=== PATIENT | male | born 1940 | race Caucasian/White ===

== ENCOUNTER 2020-12-26 08:52 | Emergency (ER) | payer MEDICARE, OTHER, SELFPAY ==
[2020-12-26 09:00] VITALS: PULSE 101; O2SAT 92
[2020-12-26 09:10] VITALS: BP 138/83; PULSE 101; RESP 18; TEMP 36.8; O2SAT 98
--- NOTE | 2020-12-26 09:18 | DI.RAD.S_ITS ---
PROCEDURE: XR CHEST 1V INDICATIONS: s/p covid booster yesterday, heavy breathing, n, fever overn TECHNIQUE: One view of the chest was acquired. COMPARISON: None. FINDINGS: Surgical changes and devices: Status post median sternotomy and findings consistent with prior CABG. Overlying EKG wires. Lungs and pleura: Lungs are clear. No pleural effusions or pneumothorax. Mediastinum: Mediastinal contours appear normal. Heart size is normal. Vascular calcifications are noted within the aorta. Bones and chest wall: No suspicious bony lesions. Overlying soft tissues appear unremarkable. IMPRESSION: No evidence of an acute cardiopulmonary abnormality. Postsurgical changes of CABG. Dictated by: Parminder Ortiz D.O. on 12/26/2020 at 8:50 Approved by: Parminder Ortiz D.O. on 12/26/2020 at 8:51
--- NOTE | 2020-12-26 09:19 | ED_ITS ---
HPI - Chest Pain General Chief Complaint: Shortness of Breath/Dyspnea Stated Complaint: reaction to booster shot Time Seen by Provider: 12/26/20 09:09 Source: patient and family (spouse at bedside.) Mode of arrival: Ambulatory Limitations: no limitations History of Present Illness HPI narrative: This is an 80-year-old male comes emergency department with complaint of possible reaction to his booster shot. He had his 3rd shot yesterday. He states the 1st 2 he had no changes. He states he felt fine during the day and then around 2:00 a.m. woke up and felt like he was breathing heavy. States that he had a fever of 100 F, he felt a little nauseated. He denies any chest pain or pressure. He denies feeling short of breath. He denies having any painful breathing. He just feels like he was breathing ?heavy ?. Patient states he felt a little nauseated. He has not had any additional symptoms since then. He states it lasted till about 8:00 a.m. this morning and then resolved on its own. Patient states they did have a pulse oximeter but that he was getting readings rating from 95 to 80s jumping up and down. Patient denies any diarrhea constipation. No urinary symptoms. No swelling in his extremities. He does have a cardiac history with bypass in 2015 he has not had any cardiac stents since then. He never had a heart attack. He has had 2 hernia repairs that failed and then a mesh placed with success. He denies any other surgeries. He takes medication including aspirin for blood pressure and cholesterol. He is allergic to cats but no medications. His primary care is Dr. Palma. Review of Systems Review of Systems ROS Unobtainable: All systems reviewed & are unremarkable except as noted in HPI and below Patient History Social History Smoking Status: Never smoker Exam Narrative Exam Narrative: GENERAL: Alert and oriented x three, male in mild distress. HEENT: Head normocephalic, atraumatic, EOMI, pupils reactive, face symmetric, moist mucous membranes NECK: Supple, full range of motion CARDIOVASCULAR: Regular rate and rhythm without murmurs, rubs or gallops. No swelling bilateral lower extremities. No JVD. RESPIRATORY: Breath sounds equal bilaterally, no wheezes rales or rhonchi. ABDOMEN: Soft, nontender. Normoactive bowel sounds all 4 quadrants. No guarding or rebound, rigidity, no mass : No CVA tenderness EXTREMITIES: Normal range of motion, no edema. Neurovascularly intact NEUROLOGICAL: Cranial nerves II through XII grossly intact. Moving all extremities SKIN: Warm, dry, no petechiae, no rashes or lesions. Initial Vital Signs Initial Vital Signs: Vital Signs Pulse Rate 101 H 12/26/20 09:00 Pulse Oximetry 92 12/26/20 09:00 Course Orders Ordered: ED Orders 12/26/20 09:08 Complete Blood Count AUTO DIFF Stat Comprehensive Metabolic Panel Stat Lipase Stat NT-proBNP (BNP-Adult 18+) Stat Troponin & CK Cardiac Panel Stat 12/26/20 09:18 XR chest 1V Stat EKG-12 Lead Stat Vital Signs Vital signs: Vital Signs - 8 hr 12/26/20 09:00 12/26/20 09:10 12/26/20 09:30 Temperature 98.3 F Pulse Rate 101 H 101 H 87 Respiratory Rate 18 20 Blood Pressure 138/83 118/82 Pulse Oximetry 92 98 96 MDM - Chest Pain Lab Data Result diagrams: 12/26/20 09:08 12/26/20 09:08 Labs: Lab Results 12/26/20 12/26/20 12/26/20 Range/Units 09:00 09:08 09:08 WBC 7.5 (4.5-11.0) X10^3/uL RBC 4.88 (4.5-5.9) X10^6/uL Hgb 15.5 (13.5-17.5) g/dL Hct 46.9 (41-53) % MCV 96.1 (80-100) fL MCH 31.8 (26-34) PG MCHC 33.1 (30-36) % RDW 13.8 (11.6-14.8) % Plt Count 178 (150-400) X10^3/uL Neut % (Auto) 78.5 H (50-75) % Lymph % (Auto) 10.7 L (25-40) % Buchanan % (Auto) 9.2 (3-14) % Eos % (Auto) 1.0 L (2-4) % Baso % (Auto) 0.6 (0-2) % Neut # (Auto) 5900 (6194-1315) /uL Lymph # (Auto) 800 L (0731-4258) /uL Buchanan # (Auto) 700 (0-900) /uL Eos # (Auto) 100 (0-450) /uL Baso # (Auto) 0 (0-100) /uL Sodium 138 (137-145) mmol/L Potassium 3.9 (3.4-5.1) mmol/L Chloride 100 (98-107) mmol/L Carbon Dioxide 29 (22-32) mmol/L BUN 13 (9-20) mg/dL Creatinine 0.93 (0.66-1.25) mg/dL Estimated GFR > 60.0 (>60) mL/min BUN/Creatinine Ratio 14.0 (6-22) Glucose 130 H (80-110) mg/dL Calcium 9.1 (8.4-10.2) mg/dL Total Bilirubin 1.2 (0.2-1.3) mg/dL AST 30 (17-59) IU/L ALT 27 (<50) IU/L Alkaline Phosphatase 48 (38-126) U/L Total Creatine Kinase 70 (55-170) U/L CK-MB (CK-2) TNP CK-MB (CK-2) Rel Index TNP Troponin I < 0.012 (0.01-0.034) ng/mL NT-Pro-B Natriuret Pep 224 (<450) pg/mL Total Protein 7.2 (6.3-8.2) g/dL Albumin 4.5 (3.5-5.0) g/dL Globulin 2.7 (1.7-4.1) g/dL Albumin/Globulin Ratio 1.7 (1.0-2.8) Lipase 36 (23-300) U/L SARS-CoV-2 (PCR) Negative (Negative) Imaging Data Chest x-ray: Radiologist's Impression: Close Chest X-Ray (Signed) Parminder Ortiz - 12/26/20 Launch?[address] [address] XRay Report Signed Patient: Robert Fisher MR#: [id number] : 1940 Acct:[id number] Age/Sex: 80 / M Date of Service: 12/26/20 Loc: ED Accession Number: [id number] ?? Procedure: XR chest 1V Ordering Provider: Babita Gonzales D.O. PROCEDURE:? XR CHEST 1V ? INDICATIONS:? s/p covid booster yesterday, heavy breathing, n, fever overn ? TECHNIQUE:? One view of the chest was acquired.? ? COMPARISON:? None. ? FINDINGS:? ? Surgical changes and devices:? Status post median sternotomy and findings consistent with prior CABG.? Overlying EKG wires. ? Lungs and pleura:? Lungs are clear.? No pleural effusions or pneumothorax.? ? Mediastinum:? Mediastinal contours appear normal.? Heart size is normal.? Vascular calcifications are noted within the aorta. ? Bones and chest wall:? No suspicious bony lesions.? Overlying soft tissues appear unremarkable.? ? IMPRESSION:? ? No evidence of an acute cardiopulmonary abnormality.? Postsurgical changes of CABG. ? ? Dictated by: Parminder Ortiz D.O. on 12/26/2020 at 8:50 ? ? Approved by: Parminder Ortiz D.O. on 12/26/2020 at 8:51?? ECG Data Attestation: I personally reviewed and interpreted this ECG as follows: Prior ECG tracings: not available for review Interpretation: Sinus rhythm first-degree AV block. Rate 89, [place] 262, QRS 96 and QTC of 438. Patient has Q-wave in 2 3 AVF. RSR in V1 V2 with left anterior fascicular block and incomplete right bundle branch. Patient does not have any acute ischemic changes. He does not have priors for comparison. [facility] Narrative Medical decision making narrative: 80-year-old male who likely had a reaction to his COVID booster. He woke up with a mild fever of 100 F, some heavy breathing but no chest pain or shortness of breath. , chest x-ray, EKG and labs do not show any acute changes. Patient otherwise has had his symptoms resolved. He was 7 hours out from his initial onset of symptoms with negative troponin and EKG and feel appropriate to discharge home. Discharge Plan Departure Patient Disposition: Home Clinical Impression: Vaccine reaction Activity Restrictions/Additional Instructions: Your labs, EKG and chest x-ray do not show any major changes today. Suspect your symptoms are response to vaccination and a normal response likely. If you have fevers you may take Tylenol up to a 1000 mg every 8 hours. Your COVID swab has not resulted as you have elected to return home. Please call in next couple hours to follow up the result. If positive I should call you but if it is very busy this can sometimes be delayed. You can call [phone] for the ER. Please return if you have new chest pain, shortness of breath, lightheadedness, swelling in your extremitiesor passing out, persistent vomiting or if you are having any other new or concerning symptoms
[2020-12-26 09:30] VITALS: BP 118/82; PULSE 87; PULSE 94; RESP 20; O2SAT 96
[2020-12-26 09:31] LABS: Add Manual Diff / Slide Review NO; Basophils Absolute Auto 0 /uL (0-100); Basophils Percent Auto 0.6 % (0-2); Eosinophils Absolute Auto 100 /uL (0-450); Hematocrit 46.9 % (41-53); Hemoglobin 15.5 g/dL (13.5-17.5); Lymphocytes Absolute Auto 800 /uL (1100-4500); Lymphocytes Percent Auto 10.7 % (25-40); Mean Corpuscular HGB Conc 33.1 % (30-36); Mean Corpuscular Hemoglobin 31.8 PG (26-34); Mean Corpuscular Volume 96.1 fL (80-100); Monocytes Absolute Auto 700 /uL (0-900); Monocytes Percent Auto 9.2 % (3-14); Neutrophils Absolute Auto 5900 /uL (1500-7000); Neutrophils Percent Auto 78.5 % (50-75); Platelet Count 178 X10^3/uL (150-400); Red Blood Cell Count 4.88 X10^6/uL (4.5-5.9); Red Cell Distribution Width 13.8 % (11.6-14.8); White Blood Cell Count 7.5 X10^3/uL (4.5-11.0)
[2020-12-26 09:57] LABS: Alanine Aminotransferase 27 IU/L (<50); Albumin 4.5 g/dL (3.5-5.0); Albumin Globulin Ratio 1.7 (1.0-2.8); Alkaline Phosphatase 48 U/L (38-126); Aspartate Aminotransferase 30 IU/L (17-59); Bilirubin Total 1.2 mg/dL (0.2-1.3); Blood Urea Nitrogen 13 mg/dL (9-20); Calcium 9.1 mg/dL (8.4-10.2); Carbon Dioxide 29 mmol/L (22-32); Chloride 100 mmol/L (98-107); Creatine Kinase 70 U/L (55-170); Estimated Glomerular Filt Rate > 60.0 mL/min (>60); Globulin 2.7 g/dL (1.7-4.1); Glucose 130 mg/dL (80-110); HEMOLYSIS < 15 (0-50); Lipase 36 U/L (23-300); Potassium 3.9 mmol/L (3.4-5.1); Sodium 138 mmol/L (137-145); Total Protein 7.2 g/dL (6.3-8.2)
[2020-12-26 10:00] VITALS: BP 119/72; PULSE 89; RESP 18; O2SAT 94
[2020-12-26 10:09] LABS: NT-proBNP (BNP-Adult 18+) 224 pg/mL (<450); Troponin I < 0.012 ng/mL (0.01-0.034)
[2020-12-26 10:30] VITALS: BP 122/72; PULSE 85; RESP 18; O2SAT 94
[2020-12-26 11:18] LABS: COVID19 -Nasal RAPID Negative (Negative)
--- NOTE | 2020-12-26 11:19 | PC.NURSE ---
called pt to give negative covid swab results
== END 2020-12-26 11:00 | disposition home or self-care (01) ==
PROVIDERS: Emergency Provider Emergency Medicine
DX: R50.9 Fever, unspecified (principal); R06.02 Shortness of breath; R11.0 Nausea; Z20.822 Contact with and (suspected) exposure to COVID-19; T50.B95A Adverse effect of other viral vaccines, initial encounter
CPT/HCPCS: 36415; 71045; 80053; 82550; 83690; 83880; 84484; 85025; 87635; 93005; 99284; C9803

== ENCOUNTER 2021-07-03 08:43 | Emergency (ER) | payer MEDICARE, OTHER, SELFPAY ==
--- NOTE | 2021-07-03 09:07 | DI.RAD.S_ITS ---
PROCEDURE: XR CHEST 1V INDICATIONS: fever, cough TECHNIQUE: One view of the chest was acquired. COMPARISON: [facility], CR, XR CHEST 1V, 12/26/2020, 9:36. FINDINGS: Surgical changes and devices: Sternotomy and CABG. Lungs and pleura: Lungs are clear. No pleural effusions or pneumothorax. Mediastinum: Mediastinal contours appear normal. Heart size is normal. Bones and chest wall: No suspicious bony lesions. Overlying soft tissues appear unremarkable. IMPRESSION: No acute cardiopulmonary disease. Dictated by: Ann Horne M.D. on 07/03/2021 at 8:29 Approved by: Ann Horne M.D. on 07/03/2021 at 8:30
[2021-07-03 09:11] VITALS: BP 125/83; PULSE 79; RESP 20; TEMP 36.3; O2SAT 98; BMI 27.4
--- NOTE | 2021-07-03 09:23 | ED.URI ---
HPI - URI/Sore Throat General Chief Complaint: Upper Respiratory Symptoms Stated Complaint: Light fever, headache, sore throat, fatigue Time Seen by Provider: 07/03/21 08:53 Source: patient Mode of arrival: Family Vehicle History of Present Illness HPI Narrative: 80-year-old male nonsmoker with history of coronary artery disease status post CABG presents with a day or 2 of various upper respiratory symptoms and concern for COVID. He has had a fever as high as 100.4 but denies any shaking chills. He has had a very mild headache, some nasal congestion and a dry scratchy throat. He has had a dry and hacking cough without any sputum production or blood. He denies GI symptoms such as nausea, vomiting or diarrhea. He denies any dysuria, frequency or urgency. He denies any exposure to persons known or suspected of having COVID. He states he largely feels quite well, but wants to be careful. He is vaccinated against COVID and Flu Related Data Previous Rx's Medication Instructions Recorded nirmatrelvir 150 mg x 2-ritonavir See Rx Instructions .ROUTE 07/03/21 100 mg tablet (EUA) (Paxlovid .COMPLEX #30 tab (EUA)) Allergies Allergy/AdvReac Type Severity Reaction Status Date / Time No Known Drug Allergies Allergy Verified 07/03/21 09:11 Review of Systems Review of Systems Narrative: GENERAL: See HPI HEENT: See HPI RESPIRATORY: See HPI CARDIOVASCULAR: Denies chest pain, palpitations, orthopnea, edema, GASTROINTESTINAL: Denies nausea, vomiting, abdominal pain, diarrhea, constipation, melena. : Denies dysuria, frequency, incontinence, hematuria, urinary retention. MUSCULOSKELETAL: denies weakness, joint pain, or bony pain SKIN: Denies rash, skin lesions, or other NEUROLOGIC: Denies weakness, headache, numbness, change in speech, confusion, seizures, incoordination. PSYCHIATRIC: No concerning psychosocial issues. 12 point review of systems is negative except for those stated above Patient History Social History Smoking Status: Never smoker Smoking Status: Never smoker alcohol intake frequency: a few times a week Substance Use Type: does not use Exam Narrative Exam Narrative: GENERAL: [80] year old patient appears stated age. Well-developed patient, in mild distress. HEAD: Atraumatic. Normocephalic. EYES: Pupils equal round and reactive. Extraocular motions intact. No scleral icterus. No injection or drainage. ENT: Nose without bleeding, purulent drainage. Throat without erythema, tonsillar hypertrophy or exudate. Airway patent. NECK: Trachea midline. Non tender. No meningeal signs CARDIOVASCULAR: Regular rate and rhythm without murmurs, gallops, or rubs. RESPIRATORY: Clear to auscultation. Breath sounds equal bilaterally. No wheezes, rales, or rhonchi. GASTROINTESTINAL: Abdomen soft, non-tender, nondistended. EXTREMITIES: No edema or joint tenderness. BACK: Nontender without deformity or crepitance. No flank tenderness. NEURO: AOx3. SKIN: No rash or erythema of visible areas Initial Vital Signs Initial Vital Signs: Vital Signs Temperature 97.4 F L 07/03/21 09:11 Pulse Rate 79 07/03/21 09:11 Respiratory Rate 20 07/03/21 09:11 Blood Pressure 125/83 07/03/21 09:11 Pulse Oximetry 98 07/03/21 09:11 Course Orders Ordered: ED Orders 07/03/21 09:07 XR chest 1V Stat Covid-19 + FLU A/B by PCR Stat 07/03/21 10:30 Creatinine & eGFR Stat Vital Signs Vital signs: Vital Signs - 8 hr 07/03/21 09:11 Temperature 97.4 F L Pulse Rate 79 Respiratory Rate 20 Blood Pressure 125/83 Pulse Oximetry 98 MDM - URI/Sore Throat Lab Data Result diagrams: 07/03/21 10:30 Labs: Lab Results 07/03/21 07/03/21 Range/Units 09:07 10:30 Creatinine 0.94 (0.66-1.25) mg/dL Estimated GFR > 60 (>60) mL/min SARS-CoV-2 (PCR) Positive H (Negative) Influenza A (RT-PCR) Flu a negative (NEGATIVE) Influenza B (RT-PCR) Flu b negative (NEGATIVE) Discharge Plan Departure Patient Disposition: Home Clinical Impression: COVID-19 Instructions: DI for COVID-19 (Suspected or Confirmed ) Activity Restrictions/Additional Instructions: A prescription for Paxlovid has been sent to [facility] pharmacy. This medication can have a serious interaction with your cholesterol rosuvastatin so it is recommended that you do not take this medication for 1 week while on Paxlovid *You have been diagnosed with [ COVID-19] *What to do: * per recommendations from the CDC and the [facility] Department of Health * stay home except to get medical care. Restrict activities outside your home, except for getting medical care. Do not go to work, school, or public areas. Avoid using public transportation, ride sharing, or taxis. * separate yourself from other people in your home. * call ahead before visiting your doctor * Wear a facemask * Cover your coughs and sneezes * Clean your hands often * Avoid sharing household items * Clean all high-touch services every day * Monitor your symptoms and seek prompt medical attention if your illness is worsening, particularly with difficulty in breathing. You may discontinue your isolation when: 1. You have been fever-free for at least 24 hours without the use of fever reducing medication, AND 2. Your symptoms are getting better, AND 3. At least 5 days have passed since symptoms first appeared 4. If you have fever, continue to stay home until fever resolves Individuals with laboratory confirmed COVID-19 who have not had any symptoms may discontinue home isolation when at least 5 days have passed since the date of their first COVID-19 diagnostic test and have had no subsequent illness You should notifiy any friends and family that have been in close contact *If up to date on COVID Vaccines, then they do not need to quarantine unless symptoms develop. Get tested on day 5 (or sooner if symptoms develop). Take precautions and watch for symptoms until day 10 *If NOT up to date on COVID Vaccines, then CDC recommends quarantine for at least 5 full days. Wear a well fitted mask at home if you must be around others. If they develop symptoms they should get tested. If they remain asymptomatic they should get tested on day 5. They should take precautions and monitor for symptoms until day 10. Prescriptions: New Paxlovid (EUA) 150 mg x 2- 100 mg tablet See Rx Instructions .ROUTE .COMPLEX Qty: 30 0RF Rx Instructions: take TWO 150 mg tablets of nirmatrelvir with ONE 100 mg tablet of ritonavir twice daily for 5 days COVID+ Day 2. Creatinine 0.94/eGFR> 60
[2021-07-03 09:55] LABS: Influenza A - CEPHEID Flu A NEGATIVE (NEGATIVE); Influenza B - CEPHEID Flu B NEGATIVE (NEGATIVE)
[2021-07-03 09:57] LABS: COVID-19 CEPHEID PCR (VTM/NP) POSITIVE (Negative)
[2021-07-03 11:05] LABS: Estimated Glomerular Filt Rate > 60 mL/min (>60)
[2021-07-03 11:42] VITALS: BP 122/73; PULSE 56; RESP 18; O2SAT 96
== END 2021-07-03 11:43 | disposition home or self-care (01) ==
PROVIDERS: Emergency Provider Emergency Medicine
DX: U07.1 COVID-19 (principal)
CPT/HCPCS: 71045; 82565; 87635; 99282; 99283; C9803

== ENCOUNTER → 2022-04-18 11:29 | Outpatient (CLI) | payer MEDICARE, OTHER, SELFPAY ==
[2022-04-18 12:34] LABS: Hematocrit 43.3 % (41-53); Hemoglobin 14.9 g/dL (13.5-17.5); Mean Corpuscular HGB Conc 34.4 % (30-36); Mean Corpuscular Hemoglobin 32.4 PG (26-34); Mean Corpuscular Volume 94.1 fL (80-100); Platelet Count 182 X10^3/uL (150-400); Red Cell Distribution Width 13.6 % (11.6-14.8); White Blood Cell Count 6.3 X10^3/uL (4.5-11.0)
[2022-04-18 13:23] LABS: Alanine Aminotransferase 28 IU/L (<50); Albumin Globulin Ratio 1.6 (1.0-2.8); Alkaline Phosphatase 44 U/L (38-126); Aspartate Aminotransferase 31 IU/L (17-59); BUN Creatinine Ratio 14.9 (6-22); Bilirubin Total 1.3 mg/dL (0.2-1.3); Blood Urea Nitrogen 13 mg/dL (9-20); Calcium 9.1 mg/dL (8.4-10.2); Carbon Dioxide 27 mmol/L (22-32); Chloride 103 mmol/L (98-107); Cholesterol 137 mg/dL (140-199); Estimated Glomerular Filt Rate > 60 mL/min (>60); Globulin 2.5 g/dL (1.7-4.1); Glucose 106 mg/dL (80-110); HDL Cholesterol 59 mg/dL (40-60); HEMOLYSIS < 15 (0-50); LDL Cholesterol Calculated 63 mg/dL (<100); Potassium 4.3 mmol/L (3.4-5.1); Sodium 138 mmol/L (137-145); Total Protein 6.5 g/dL (6.3-8.2); Triglycerides 76 mg/dL (35-150)
[2022-04-18 13:44] LABS: Prostate Specific Antigen 3.73 ng/mL (0.10-4.00); TSH w/ Reflex to FT4 1.69 uIU/mL (0.47-4.68)
== END ==
PROVIDERS: PCP Internal Medicine; Referring Provider Internal Medicine; Visit Provider Internal Medicine
DX: E78.2 Mixed hyperlipidemia (principal); Z85.038 Personal history of other malignant neoplasm of large intestine; N40.1 Benign prostatic hyperplasia with lower urinary tract symptoms; I10 Essential (primary) hypertension; I25.10 Atherosclerotic heart disease of native coronary artery without angina pectoris; N13.8 Other obstructive and reflux uropathy
CPT/HCPCS: 36415; 80053; 80061; 82378; 84153; 84443; 85027

== ENCOUNTER → 2022-07-25 16:44 | Outpatient (CLI) | payer MEDICARE, OTHER, SELFPAY ==
[2022-07-25 18:10] LABS: Influenza A - CEPHEID Flu A NEGATIVE (NEGATIVE); Influenza B - CEPHEID Flu B NEGATIVE (NEGATIVE); Respiratory Syncytial Virus Negative (Negative)
[2022-07-25 18:18] LABS: COVID-19 CEPHEID 4-PLEX PCR Negative (Negative)
== END ==
PROVIDERS: PCP Internal Medicine; Visit Provider Internal Medicine
DX: J06.9 Acute upper respiratory infection, unspecified (principal)
CPT/HCPCS: 0241U

== ENCOUNTER → 2023-05-10 08:32 | Outpatient (CLI) | payer MEDICARE, OTHER, SELFPAY ==
[2023-05-10 09:34] LABS: Alanine Aminotransferase 26 IU/L (<50); Albumin 3.9 g/dL (3.5-5.0); Albumin Globulin Ratio 1.3 (1.0-2.8); Alkaline Phosphatase 47 U/L (38-126); Aspartate Aminotransferase 39 IU/L (17-59); BUN Creatinine Ratio 16.5 (6-22); Bilirubin Total 1.4 mg/dL (0.2-1.3); Blood Urea Nitrogen 13 mg/dL (9-20); Calcium 9.2 mg/dL (8.4-10.2); Carbon Dioxide 30 mmol/L (22-32); Chloride 107 mmol/L (98-107); Cholesterol 132 mg/dL (140-199); Estimated Glomerular Filt Rate > 60 mL/min (>60); Globulin 2.9 g/dL (1.7-4.1); Glucose 110 mg/dL (80-110); HDL Cholesterol 56 mg/dL (40-60); HEMOLYSIS < 15 (0-50); LDL Cholesterol Calculated 56 mg/dL (<100); Potassium 4.5 mmol/L (3.4-5.1); Sodium 141 mmol/L (137-145); Total Protein 6.8 g/dL (6.3-8.2); Triglycerides 99 mg/dL (35-150)
[2023-05-10 09:37] LABS: Hematocrit 45.3 % (41-53); Hemoglobin 15.3 g/dL (13.5-17.5); Mean Corpuscular HGB Conc 33.7 % (30-36); Mean Corpuscular Hemoglobin 31.8 PG (26-34); Mean Corpuscular Volume 94.3 fL (80-100); Platelet Count 197 X10^3/uL (150-400); Red Cell Distribution Width 13.6 % (11.6-14.8); White Blood Cell Count 6.1 X10^3/uL (4.5-11.0)
== END ==
PROVIDERS: PCP Internal Medicine; Referring Provider Internal Medicine; Visit Provider Internal Medicine
DX: E78.2 Mixed hyperlipidemia (principal); I10 Essential (primary) hypertension; I25.10 Atherosclerotic heart disease of native coronary artery without angina pectoris
CPT/HCPCS: 36415; 80053; 80061; 85027

== ENCOUNTER → 2023-08-24 17:06 | Outpatient (CLI) | payer MEDICARE, OTHER, SELFPAY | PROVIDERS: PCP Internal Medicine; Visit Provider Nurse Practitioner Family | DX: S81.802A Unspecified open wound, left lower leg, initial encounter (principal) | CPT/HCPCS: 87070; 87075; 87205 ==

== ENCOUNTER 2023-09-26 07:25 | Emergency (ER) | payer MEDICARE, OTHER, SELFPAY ==
[2023-09-26] VITALS (11 sets, daily range): BP systolic 121–166; BP diastolic 63–80; PULSE 73–77; RESP 20–28; TEMP 37.3; O2SAT 93–98; BMI 28.0
--- NOTE | 2023-09-26 08:02 | EKG_ITS ---
[facility] [address] [place] [address] Test Date: 2023-09-26 Pat Name: Robert Fisher Department: [facility] Room: Gender: Male [employer]: [employer] : 1940 Requested By: Order Number: [id number] Reading MD: Genaro Kaufman Measurements Intervals [place] Rate: 76 P: 39 PA: 232 QRS: -53 QRSD: 94 T: 59 QT: 364 QTc: 409 Interpretive Statements Sinus rhythm with 1st degree AV block Left axis deviation Incomplete right bundle branch block Electronically Signed On 09-26-2023 8:51:46 PDT by Genaro Kaufman
[2023-09-26 08:11] LABS: Add Manual Diff / Slide Review NO; Basophils Absolute Auto 0 /uL (0-100); Basophils Percent Auto 0.7 % (0-2); Eosinophils Absolute Auto 100 /uL (0-450); Eosinophils Percent Auto 0.8 % (2-4); Hematocrit 46.5 % (41-53); Hemoglobin 15.7 g/dL (13.5-17.5); Lymphocytes Absolute Auto 1300 /uL (1100-4500); Lymphocytes Percent Auto 18.3 % (25-40); Mean Corpuscular HGB Conc 33.7 % (30-36); Mean Corpuscular Hemoglobin 32.2 PG (26-34); Mean Corpuscular Volume 95.3 fL (80-100); Monocytes Absolute Auto 800 /uL (0-900); Monocytes Percent Auto 12.1 % (3-14); Neutrophils Absolute Auto 4700 /uL (1500-7000); Neutrophils Percent Auto 68.1 % (50-75); Platelet Count 148 X10^3/uL (150-400); Red Blood Cell Count 4.88 X10^6/uL (4.5-5.9); Red Cell Distribution Width 14.2 % (11.6-14.8); White Blood Cell Count 6.9 X10^3/uL (4.5-11.0)
[2023-09-26 08:19] LABS: Alanine Aminotransferase 159 IU/L (<50); Albumin 4.2 g/dL (3.5-5.0); Albumin Globulin Ratio 1.5 (1.0-2.8); Alkaline Phosphatase 67 U/L (38-126); Aspartate Aminotransferase 275 IU/L (17-59); Blood Urea Nitrogen 13 mg/dL (9-20); Calcium 8.5 mg/dL (8.4-10.2); Carbon Dioxide 28 mmol/L (22-32); Chloride 102 mmol/L (98-107); Estimated Glomerular Filt Rate > 60 mL/min (>60); Globulin 2.8 g/dL (1.7-4.1); Glucose 151 mg/dL (80-110); HEMOLYSIS 21 (0-50); Lipase 537 U/L (23-300); Potassium 3.9 mmol/L (3.4-5.1); Sodium 136 mmol/L (137-145)
--- NOTE | 2023-09-26 08:20 | ED_ITS ---
HPI - Abdominal Pain General Chief Complaint: Abdominal Pain Stated Complaint: Upper stomach pain, weak and dizzy COVID + Time Seen by Provider: 09/26/23 08:07 Source: patient and family Mode of arrival: Ambulatory History of Present Illness HPI narrative: Patient here for non reproducible epigastric pain that does not radiate to chest or back. Patient states is positive for COVID. He tested positive for COVID. He felt fine over the weekend however this past Sunday couple of days ago felt feverish. Was doing well. No cough cold congestion or shortness of breath. However last night he had 2 episodes 1 was 20 minutes episode, and others 5 minute episode of epigastric discomfort nonreproducible achy feeling he can not describe but did not radiate causing him nausea but no vomiting. He was sweating. Never had this before. He had COVID in 2021 but not the symptoms. No urinary complaints no black or bloody stools. No prior history of aortic dissection or aneurysm. Does have history of CABG/coronary disease but denies any chest pain or shortness of breath patient in no distress at this time. No discomfort or nausea at this time. Exam is reassuring at this time Related Data Home Medications Medication Instructions Recorded Confirmed amlodipine 5 mg tablet 5 mg PO DAILY 04/06/22 08/14/23 aspirin 81 mg capsule 81 mg PO DAILY 04/06/22 08/14/23 cholecalciferol (vitamin D3) 25 25 mcg PO DAILY 04/06/22 08/14/23 mcg (1,000 unit) capsule cyanocobalamin (vitamin B-12) 1,000 mcg PO DAILY 04/06/22 08/14/23 1,000 mcg capsule ezetimibe 10 mg tablet 10 mg PO DAILY 04/06/22 08/14/23 rosuvastatin 20 mg tablet 20 mg PO DAILY 04/06/22 08/14/23 Previous Rx's Medication Instructions Recorded mupirocin 2 % topical ointment 1 applic topical TID #22 grams 08/24/23 hydrocodone 5 mg-acetaminophen 325 1 tab PO Q6H PRN pain #20 tabs 09/26/23 mg tablet ondansetron 4 mg disintegrating 4 mg PO Q8H PRN nausea and 09/26/23 tablet vomiting #10 tabs Allergies Allergy/AdvReac Type Severity Reaction Status Date / Time No Known Drug Allergies Allergy Verified 08/24/23 16:30 Review of Systems Review of Systems Narrative: GENERAL: negative chills, fatigue, malaise, fever, positive sweats. HEENT: negative sinus pain, ear pain, sore throat RESPIRATORY: negative dyspnea, cough CARDIOVASCULAR: negative chest pain, palpitations GASTROINTESTINAL: Positive nausea, negative vomiting, positive abdominal pain : negative dysuria, frequency, hematuria MUSCULOSKELETAL: negative muscle or bony pain SKIN: negative rash, skin lesions NEUROLOGIC: negative weakness, numbness ROS Unobtainable: All systems reviewed & are unremarkable except as noted in HPI and below Patient History Medical History Overweight History of colon cancer BPH w urinary obs/LUTS Mixed hyperlipidemia Essential hypertension Chicken pox (~194) Colon polyps Coronary artery disease (~2014) Surgical History Anesthesia History of coronary artery bypass graft (~12/2014) History of hernia repair (~12/2005) History of hernia repair (~12/2003) History of cholecystectomy (~09/2003) Colon tumor (~03/2003) Family History Father History of heart disease Mother Cancer Grandfather Flu Social History details: ([place]), two children, retired financial/contract associate Smoking Status: Never smoker Smoking Status: Never smoker alcohol intake frequency: a few times a week Substance Use Type: does not use Exam Narrative Exam Narrative: GENERAL: in no distress, not toxic not dyspneic HEAD: Normocephalic. EYES: Pupils equal round ENT: Mucous membranes moist. NECK: Trachea midline. CARDIOVASCULAR: Regular rate and rhythm RESPIRATORY: Clear to auscultation. Breath sounds equal bilaterally. No wheezes, rales, or rhonchi. GASTROINTESTINAL: Abdomen soft, non-tender, no epigastric tenderness, bowel sounds are present. No pain out of portion exam no peritoneal signs no CVA tenderness. Strong bilateral carotid pulses and radial pulses. EXTREMITIES: No gross deformities. BACK: No flank tenderness. NEURO: AOx4. SKIN: Warm and dry, not diaphoretic PSYCH: Not anxious, is cooperative Initial Vital Signs Initial Vital Signs: Vital Signs Temperature 99.1 F 09/26/23 07:25 Pulse Rate 75 09/26/23 07:25 Respiratory Rate 20 09/26/23 07:25 Blood Pressure 155/80 H 09/26/23 07:25 Pulse Oximetry 98 09/26/23 07:25 Oxygen Delivery Method Room Air 09/26/23 07:25 Course Orders Ordered: Discontinued Medications Sodium Chloride (Normal Saline 0.9%) 500 mls @ 1,000 mls/hr IV BOLUS ONE Stop: 09/26/23 08:52 Last Infusion: 09/26/23 10:20 Dose: Infused Documented By: Admin: 09/26/23 09:05 Dose: 1,000 mls/hr Documented By: NATASHA Ondansetron HCl (Ondansetron 4 Mg/2 Ml Inj) 4 mg IV NOW PRN PRN Reason: Nausea And Vomiting Ondansetron HCl (Ondansetron 4 Mg Odt) 4 mg PO NOW PRN PRN Reason: Nausea And Vomiting Vital Signs Vital signs: Vital Signs - 8 hr 09/26/23 07:25 09/26/23 07:35 09/26/23 07:37 Temperature 99.1 F Pulse Rate 75 Respiratory Rate 20 Blood Pressure 155/80 H 155/80 H Pulse Oximetry 98 96 Oxygen Delivery Method Room Air Nasal Cannula Oxygen Flow Rate 4 09/26/23 07:37 09/26/23 08:00 09/26/23 08:48 Temperature Pulse Rate 75 77 Respiratory Rate Blood Pressure 166/79 H Pulse Oximetry 97 95 Oxygen Delivery Method Oxygen Flow Rate 09/26/23 08:48 09/26/23 08:55 09/26/23 09:00 Temperature Pulse Rate 74 75 Respiratory Rate 28 H Blood Pressure Pulse Oximetry 98 95 97 Oxygen Delivery Method Nasal Cannula Oxygen Flow Rate 4 09/26/23 09:01 09/26/23 09:01 09/26/23 09:30 Temperature Pulse Rate 75 Respiratory Rate Blood Pressure 129/63 138/69 Pulse Oximetry 95 Oxygen Delivery Method Oxygen Flow Rate 09/26/23 09:30 09/26/23 10:00 09/26/23 10:00 Temperature Pulse Rate 73 75 Respiratory Rate Blood Pressure 121/69 Pulse Oximetry 97 93 Oxygen Delivery Method Oxygen Flow Rate MDM - Abdominal Pain Lab Data 09/26/23 07:43 09/26/23 07:43 Labs: Lab Results 09/26/23 09/26/23 09/26/23 Range/Units 07:43 08:40 09:24 WBC 6.9 (4.5-11.0) X10^3/uL RBC 4.88 (4.5-5.9) X10^6/uL Hgb 15.7 (13.5-17.5) g/dL Hct 46.5 (41-53) % MCV 95.3 (80-100) fL MCH 32.2 (26-34) PG MCHC 33.7 (30-36) % RDW 14.2 (11.6-14.8) % Plt Count 148 L (150-400) X10^3/uL Neut % (Auto) 68.1 (50-75) % Lymph % (Auto) 18.3 L (25-40) % Barber % (Auto) 12.1 (3-14) % Eos % (Auto) 0.8 L (2-4) % Baso % (Auto) 0.7 (0-2) % Neut # (Auto) 4700 (3433-1882) /uL Lymph # (Auto) 1300 (8281-8313) /uL Barber # (Auto) 800 (0-900) /uL Eos # (Auto) 100 (0-450) /uL Baso # (Auto) 0 (0-100) /uL Sodium 136 L (137-145) mmol/L Potassium 3.9 (3.4-5.1) mmol/L Chloride 102 (98-107) mmol/L Carbon Dioxide 28 (22-32) mmol/L BUN 13 (9-20) mg/dL Creatinine 0.93 (0.66-1.25) mg/dL Estimated GFR > 60 (>60) mL/min BUN/Creatinine Ratio 14.0 (6-22) Glucose 151 H (80-110) mg/dL Calcium 8.5 (8.4-10.2) mg/dL Total Bilirubin 1.0 (0.2-1.3) mg/dL AST 275 H (17-59) IU/L ALT 159 H (<50) IU/L Alkaline Phosphatase 67 (38-126) U/L Total Creatine Kinase 101 (55-170) U/L Troponin I < 0.012 (0.01-0.034) ng/mL Total Protein 7.0 (6.3-8.2) g/dL Albumin 4.2 (3.5-5.0) g/dL Globulin 2.8 (1.7-4.1) g/dL Albumin/Globulin Ratio 1.5 (1.0-2.8) Lipase 537 H (23-300) U/L Urine RBC None seen (0-5/HPF) Urine WBC 1-5/hpf (0-5/HPF) Ur Squamous Epith Cells None seen (0-5/HPF) Urine Bacteria None seen (None) Ur Culture Indicated? Specimen cultured Vol Urine Centrifuged 10ml (spun) Ethyl Alcohol < 10 ( - 10) mg/dL Chlamy pneumoniae PCR Not detected (Not Detect) Adenovirus (PCR) Not detected (Not Detect) B.parapertussis DNA PCR Not detected (Not Detecte) Coronavirus OC43 (PCR) Not detected (Not Detect) Coronavirus HKU1 (PCR) Not detected (Not Detect) Coronavirus 229E (PCR) Not detected (Not Detect) SARS-CoV-2 (PCR) Detected H (Not Detecte) Coronavirus NL63 (PCR) Not detected (Not Detect) Human Metapneumovir PCR Not detected (Not Detect) Influenza Type A (PCR) Not detected (Not Detect) Influenza Type B (PCR) Not detected (Not Detect) M. pneumoniae (PCR) Not detected (Not Detect) Parainfluenza 1 (PCR) Not detected (Not Detect) Parainfluenza 2 (PCR) Not detected (Not Detect) Parainfluenza 3 (PCR) Not detected (Not Detect) Parainfluenza 4 (PCR) Not detected (Not Detect) RSV (PCR) Not detected (Not Detect) Entero/Rhino (PCR) Not detected (Not Detect) Point of care testing: Urine Dip Bedside Urine Glucose Negative Bedside Urine Bilirubin - Negative Bedside Urine Ketone - Negative Urine Specific [place] 1.010 Bedside Urine Occult Blood - Negative Bedside Urine pH 6.0 Bedside Urine Protein - Negative Bedside Urine Urobilinogen - Negative Bedside Urine Nitrite - Negative Bedside Urine Leukocytes +/- [address] angio chest abdomen pelvis: Radiologist's Impression: [address] [address] [address] Scan Report Signed Patient: Robert Fisher MR#: [id number] : 1940 Acct:[id number] Age/Sex: 82 / M Date of Service: 09/26/23 Loc: ED Accession Number: [id number] Procedure: CT angio chest abdomen pelvis Ordering Provider: Jeff Cassidy MD PROCEDURE: CT ANGIO CHEST ABDOMEN PELVIS INDICATIONS: Epigastric pain TECHNIQUE: Precontrast 5 mm thick sections acquired from the lung apices to the iliac crests. After the administration of intravenous contrast, 2.5 mm thick sections again acquired from the lung apices to the iliac crests. Maximum intensity projection (MIP) oblique sagittal and coronal reformats were then acquired. For radiation dose reduction, the following was used: automated exposure control. COMPARISON: None. FINDINGS: Image quality: Diagnostic. AORTA: No acute aortic syndrome. Significant atherosclerotic calcifications. Aneurysmal dilatation of the infrarenal abdominal aorta measuring 3.8 x 3.5 centimeters. CHEST: Lower Neck: No enlarged lymph nodes. Thyroid: No thyroid nodules which require sonographic evaluation. Axillae: No enlarged lymph nodes. Chest Wall: Unremarkable. Lungs and Pleura: No pneumothorax or pleural effusions. No consolidation or suspicious nodules. Heart: Heart size is normal. Severe coronary artery calcifications. Postsurgical changes from CABG. No pericardial effusion. Thoracic Vessels: Dilated main pulmonary artery measuring 3.6 centimeters. Mediastinum and Yin: No enlarged lymph nodes. Esophagus: No wall thickening. No hiatal hernia. ABDOMEN: Liver: No solid mass. Gallbladder: Surgically absent. Biliary ducts: No biliary dilation. Pancreas: No ductal dilation. Cystic structure arising from the body of the pancreas measuring 1.3 centimeters. Spleen: Size is within normal limits. Adrenal Glands: No adrenal nodules. Kidneys and Ureters: No hydronephrosis. No solid mass. No complex renal cystic lesion which requires follow up. Stomach and Bowel: Normal colonic caliber, without significant wall thickening. Diverticulosis evidence of acute diverticulitis. Postsurgical changes at the cecum. Peritoneum: No abnormal intraperitoneal fluid. No free air. Ventral Wall: Anterior abdominal wall mesh hernia repair. Small fat containing hernia anterior to the mesh in the epigastric region. Abdominal Nodes: No retroperitoneal or mesenteric adenopathy by size criteria. Vessels: Inferior vena cava is normal in size. PELVIS: Pelvic Organs: Prostate is enlarged. Bladder: Unremarkable. Pelvic Nodes: No enlarged lymph nodes. Miscellaneous: Small bilateral fat containing inguinal hernias are seen. Bones: Degenerative changes of the spine. Median sternotomy wires. IMPRESSION: 1. No acute aortic syndrome. 2. Aneurysmal dilatation of the infrarenal abdominal aorta measuring up to 3.8 centimeters. Recommend follow-up imaging in 2 years to assess stability. 3. Dilated main pulmonary artery, suggestive of pulmonary hypertension. 4. Severe coronary artery calcifications. Postsurgical changes from CABG. 5. 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 Dictated by: Eduardo Raygoza M.D. on 09/26/2023 at 8:51 Approved by: Eduardo Raygoza M.D. on 09/26/2023 at 9:06 [facility] Narrative Medical decision making narrative: Patient here for non reproducible epigastric pain that does not radiate to chest or back. Patient states is positive for COVID. He tested positive for COVID. He felt fine over the weekend however this past Sunday couple of days ago felt feverish. Was doing well. No cough cold congestion or shortness of breath. However last night he had 2 episodes 1 was 20 minutes episode, and others 5 minute episode of epigastric discomfort nonreproducible achy feeling he can not describe but did not radiate causing him nausea but no vomiting. He was sweating. Never had this before. He had COVID in 2021 but not the symptoms. No urinary complaints no black or bloody stools. No prior history of aortic dissection or aneurysm. Does have history of CABG/coronary disease but denies any chest pain or shortness of breath patient in no distress at this time. No discomfort or nausea at this time. Exam is reassuring at this time After history and exam EKG troponin CBC CMP lipase CT angio chest abdomen pelvis normal saline MDM Medical records reviewed: No recent visit versus complaint Differential considered: Includes but not limited to aortic dissection aortic aneurism, pneumonia, mesenteric adenitis acid reflux gastritis pancreatitis bowel obstruction hiatal hernia Lab Test results independently reviewed as above. Pertinent findings: WBC 6.9 hemoglobin 15.7 sodium 136 potassium 3.9 glucose 151 AST 275 ALT 159 troponin less than 0.012 lipase 537 Positive COVID alcohol negative Independently reviewed EKG EKG sinus rhythm rate [address] elevation or depression Imaging studies independently reviewed: CT angiogram chest abdomen pelvis no acute aortic syndrome. There is aneurysmal dilatation infrarenal aorta 3.8 cm recommend to your follow up. 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 Spoke with General surgery Dr. Norris, no further imaging indicated. No admission indicated. Patient will need to follow up with primary care for referral to likely [facility] or outside facility for biopsy which may include gastroenterology services or Interventional Radiology. The services are not done here. Oncology will be to be content after biopsy. 10:[address] Lynch, primary care, who will see patient next week for follow up and get appropriate referrals for pancreatic lesion fainting today. CT results reviewed with him and follow up will be provided for aneurysms findings as well Treatments: Normal saline Re-evaluations: 9:28 a.m. Updated patient and results. Does have abdominal aneurysms but likely not the source of problem today. Likely pancreatitis given CT results of cyst. There are elevated liver enzymes and lipase. Uncertain source of this cyst at this time. Neoplastic is considered. He does not have heavy alcohol abuse. At this time awaiting to hear back from general surgery and oncology. Aneurysmal findings reviewed with patient and but these are not likely source of his discomfort. Follow up needed with primary care. Discussion: Appropriate for discharge home exam is reassuring. COVID finding not likely related to the pancreatic finding. Return precautions reviewed. Not requiring supplemental oxygen. No respiratory complaints. Pain is controlled. Return precautions reviewed with patient and . They do understand much more workup and follow up will be needed next week with primary care that was contacted today. No symptoms at this time at time of discharge. Prescriptions provided. They desire discharge home Diagnosis: COVID/pancreatitis Discharge Plan Departure Patient Disposition: Home Clinical Impression: COVID Pancreatitis Qualifiers: Chronicity: acute Pancreatitis type: unspecified pancreatitis type Acute pancreatitis complication: unspecified Qualified Code(s): K85.90 - Acute pancreatitis without necrosis or infection, unspecified Instructions: DI for Pancreatitis, DI for Abdominal Pain-Adult, DI for COVID-19 (Suspected or Confirmed ) Activity Restrictions/Additional Instructions: Your family doctor has been contacted today for findings of pancreatitis and assist on your pancreas. He will see you next week. Please call the office for appointment time today. You will need further workup through his office and treatment plan. In the meantime no fried fatty greasy foods, oily foods, alcohol. Prescription medication has been provided for pain or nausea. Return if worse if any questions or concerns. You have tested positive for COVID. You must quarantine 5 days from 1st day of symptoms. Prescriptions: New hydrocodone-acetaminophen 5-325 mg tablet 1 tab PO Q6H PRN (Reason: pain) Qty: 20 0RF ondansetron 4 mg tablet,disintegrating 4 mg PO Q8H PRN (Reason: nausea and vomiting) Qty: 10 0RF No Action mupirocin 2 % ointment 1 applic topical TID Qty: 22 0RF rosuvastatin 20 mg tablet 20 mg PO DAILY ezetimibe 10 mg tablet 10 mg PO DAILY amlodipine 5 mg tablet 5 mg PO DAILY aspirin 81 mg capsule 81 mg PO DAILY cholecalciferol (vitamin D3) 25 mcg (1,000 unit) capsule 25 mcg PO DAILY cyanocobalamin (vitamin B-12) 1,000 mcg capsule 1,000 mcg PO DAILY Referrals: Wilbur Lynch MD [Primary Care Provider] - Stand Alone Forms: Patient Portal/API
[2023-09-26 08:36] LABS: Creatine Kinase 101 U/L (55-170)
[2023-09-26 08:50] LABS: Troponin I < 0.012 ng/mL (0.01-0.034)
[2023-09-26 09:01] LABS: Urine Volume 10mL (spun)
[2023-09-26 09:02] LABS: Bacteria Urine None Seen; Culture Indicated Urine Specimen Cultured; RBC Urine None Seen (0-5/HPF); Squamous Epithelial Cell Urine None Seen (0-5/HPF); WBC Urine 1-5/HPF (0-5/HPF)
[2023-09-26] MEDS: SODIUM CHLORIDE 0.9% 500 ML 1000 ML IV (09:05)
[2023-09-26 09:36] LABS: Ethanol (ETOH) < 10 mg/dL
[2023-09-26 10:18] LABS: Adenovirus Not Detected (Not Detect); B. parapertussis Not Detected (Not Detecte); Bordetella pertussis Not Detected (Not Detect); Chlamydophila pneumoniae Not Detected (Not Detect); Coronavirus 229E Not Detected (Not Detect); Coronavirus HKU1 Not Detected (Not Detect); Coronavirus NL 63 Not Detected (Not Detect); Coronavirus OC43 Not Detected (Not Detect); Human Metapneumovirus Not Detected (Not Detect); Human Rhinovirus/Enterovirus Not Detected (Not Detect); Influenza A Not Detected (Not Detect); Influenza B Not Detected (Not Detect); Mycoplasma pneumoniae Not Detected (Not Detect); Parainfluenza Virus 1 Not Detected (Not Detect); Parainfluenza Virus 2 Not Detected (Not Detect); Parainfluenza Virus 3 Not Detected (Not Detect); Parainfluenza Virus 4 Not Detected (Not Detect); Respiratory Syncytial Virus Not Detected (Not Detect)
[2023-09-26 10:19] LABS: SARS- CoV-2 Detected (Not Detecte)
== END 2023-09-26 11:07 | disposition home or self-care (01) ==
PROVIDERS: Emergency Provider Emergency Medicine; PCP Internal Medicine
DX: U07.1 COVID-19 (principal); K85.90 Acute pancreatitis without necrosis or infection, unspecified; R10.13 Epigastric pain
CPT/HCPCS: 36415; 71275; 74174; 80053; 80320; 81003; 81015; 82550; 83690; 84484; 85025; 87086; 87633; 93005; 96360; 99284; 99285; Q9967

== ENCOUNTER → 2023-09-27 18:52 | Outpatient (CLI) | payer MEDICARE, OTHER, SELFPAY ==
--- NOTE | 2023-09-27 18:53 | DI.MRI.S_ITS ---
PROCEDURE: MR ABDOMEN WO/W CON INDICATIONS: pancreatic cyst TECHNIQUE: Coronal HASTE, axial 2D FLASH in- and [id number]; axial breath-hold T2 FSE with fat saturation from the hepatic dome to the iliac crests. Oblique coronal thin-slice and radial thick slab HASTE through the biliary system. Dynamic axial VIBE during administration of contrast. Post-contrast coronal VIBE or 2D FLASH with fat saturation from the hepatic dome to the iliac crests. Optional diffusion weighted imaging and ADC may be performed. COMPARISON: [facility], CT, CT ANGIO CHEST ABDOMEN PELVIS, 09/26/2023, 8:22. FINDINGS: Image quality: Diagnostic Lower chest: Not well evaluated on this MRI Liver: No significant focal abnormality. Gallbladder and biliary system: Gallbladder is not seen. Ectatic biliary system, may be related to postsurgical state Pancreas: Nondilated pancreatic duct. 1.3 centimeter cystic lesion arising from the superior body is confirmed on MRI, without high risk features suggest ductal dilation or nodular enhancement Spleen: Nonenlarged Adrenals: No discrete nodules Kidneys: There are cysts. No solid mass or hydronephrosis Vessels and lymph nodes: Abdominal aortic aneurysm, better assessed on recent CT. Main portal vein is patent. No abdominal pathologic lymph nodes by size criteria Bowel and peritoneum: No pathologic ascites or bowel obstruction There are suture lines. Body wall: Postsurgical changes. Bones: Degenerative changes IMPRESSION: A 1.3 centimeter pancreatic body cystic lesion may represent IPMN. No high risk features such as ductal dilation or nodular enhancement. Given patient age, clinical follow-up in 1-2 years may be obtained at clinical discretion. Other findings as above Dictated by: Raymond Khan M.D. on 09/28/2023 at 10:00 Approved by: Raymond Khan M.D. on 09/28/2023 at 10:05
== END ==
PROVIDERS: PCP Internal Medicine; Referring Provider Internal Medicine; Visit Provider Internal Medicine
DX: K86.2 Cyst of pancreas (principal); N28.1 Cyst of kidney, acquired; I71.40 Abdominal aortic aneurysm, without rupture, unspecified
CPT/HCPCS: 74183; A9579

== ENCOUNTER → 2023-10-03 10:28 | Outpatient (CLI) | payer MEDICARE, OTHER, SELFPAY ==
[2023-10-03 11:30] LABS: Hematocrit 44.8 % (41-53); Hemoglobin 15.4 g/dL (13.5-17.5); Mean Corpuscular HGB Conc 34.4 % (30-36); Mean Corpuscular Hemoglobin 32.1 PG (26-34); Mean Corpuscular Volume 93.5 fL (80-100); Platelet Count 238 X10^3/uL (150-400); Red Blood Cell Count 4.79 X10^6/uL (4.5-5.9); Red Cell Distribution Width 13.2 % (11.6-14.8)
[2023-10-03 11:41] LABS: Alanine Aminotransferase 41 IU/L (<50); Albumin 4.1 g/dL (3.5-5.0); Albumin Globulin Ratio 1.7 (1.0-2.8); Alkaline Phosphatase 46 U/L (38-126); Amylase 53 U/L (30-110); Aspartate Aminotransferase 36 IU/L (17-59); BUN Creatinine Ratio 15.9 (6-22); Bilirubin Total 1.6 mg/dL (0.2-1.3); Blood Urea Nitrogen 14 mg/dL (9-20); Calcium 9.2 mg/dL (8.4-10.2); Carbon Dioxide 25 mmol/L (22-32); Chloride 106 mmol/L (98-107); Estimated Glomerular Filt Rate > 60 mL/min (>60); Globulin 2.4 g/dL (1.7-4.1); Glucose 106 mg/dL (80-110); HEMOLYSIS < 15 (0-50); Lipase 61 U/L (23-300); Potassium 4.4 mmol/L (3.4-5.1); Sodium 138 mmol/L (137-145); Total Protein 6.5 g/dL (6.3-8.2)
== END ==
PROVIDERS: PCP Internal Medicine; Referring Provider Internal Medicine; Visit Provider Internal Medicine
DX: K85.90 Acute pancreatitis without necrosis or infection, unspecified (principal)
CPT/HCPCS: 36415; 80053; 82150; 83690; 85027

== ENCOUNTER → 2023-11-08 14:15 | Outpatient (CLI) | payer MEDICARE, OTHER, SELFPAY ==
--- NOTE | 2023-11-08 14:16 | DI.US.S_ITS ---
PROCEDURE: US RENAL COMPLETE INDICATIONS: renal injury TECHNIQUE: Real-time scanning was performed of the kidneys and bladder, with image documentation. COMPARISON: [facility], MR, MR ABDOMEN WO/W CON, 09/27/2023, 19:08. [facility], CT, CT ANGIO CHEST ABDOMEN PELVIS, 09/26/2023, 8:22. FINDINGS: Kidneys: Kidneys are mildly atrophic. Right kidney measures 9.8 cm long; left kidney measures 11.7 cm long. Right renal cortical thickness is 1.5 cm; left renal cortical thickness is 1.2 cm. Renal cortical echotexture is normal. No hydronephrosis or nephrolithiasis. No suspicious solid mass lesions. Simple bilateral cysts are present the largest on the right measuring 4.4 cm. Bladder: Pre-void bladder volume is 98 mL. Post-void residual is 3 mL. Pre-void images demonstrate no intraluminal masses or stones. On pre-void images, bilateral ureteral jets are noted with color Doppler interrogation. (Of note, ureteral jets may not be detectable in up to 25% of cases due to insufficient differences in specific gravity between ureteral and bladder urine). Miscellaneous: No free pelvic fluid. Prostate gland is enlarged measuring 5.2 x 5.7 x 4.6 cm. IMPRESSION: Simple bilateral renal cysts. Otherwise, unremarkable. Dictated by: Kaya Lutz M.D. on 11/08/2023 at 17:33 Approved by: Kaya Lutz M.D. on 11/08/2023 at 17:34
== END ==
LOC: US 14:16
PROVIDERS: PCP Internal Medicine; Referring Provider Internal Medicine; Visit Provider Internal Medicine
DX: S30.0XXA Contusion of lower back and pelvis, initial encounter (principal); S37.009A Unspecified injury of unspecified kidney, initial encounter; N28.1 Cyst of kidney, acquired; X58.XXXA Exposure to other specified factors, initial encounter
CPT/HCPCS: 76770

== ENCOUNTER → 2024-06-03 09:34 | Outpatient (CLI) | payer MEDICARE, OTHER, SELFPAY ==
[2024-06-03 10:39] LABS: Hemoglobin A1C% w Est Avg Glu 5.6 % (4.0-6.0)
[2024-06-03 10:52] LABS: Aspartate Aminotransferase 35 IU/L (17-59); BUN Creatinine Ratio 18.9 (6-22); Blood Urea Nitrogen 17 mg/dL (9-20); Calcium 9.5 mg/dL (8.4-10.2); Carbon Dioxide 27 mmol/L (22-32); Chloride 104 mmol/L (98-107); Cholesterol 135 mg/dL (140-199); Estimated Glomerular Filt Rate > 60 mL/min (>60); Glucose 111 mg/dL (80-110); HDL Cholesterol 61 mg/dL (40-60); HEMOLYSIS < 15 (0-50); LDL Cholesterol Calculated 57 mg/dL (<100); Potassium 4.2 mmol/L (3.4-5.1); Sodium 140 mmol/L (137-145); Triglycerides 86 mg/dL (35-150)
[2024-06-03 11:22] LABS: Carcinoembryonic Antigen 2.4 ng/mL (0.1-3.0); Prostate Specific Antigen 5.42 ng/mL (0.10-4.00)
[2024-06-04 07:09] LABS: Cancer (Carbohydrate) Ag 19-9 35 U/mL (0-35)
== END ==
PROVIDERS: PCP Internal Medicine; Referring Provider Internal Medicine; Visit Provider Internal Medicine
DX: R73.01 Impaired fasting glucose (principal); E78.2 Mixed hyperlipidemia; Z85.038 Personal history of other malignant neoplasm of large intestine; C61 Malignant neoplasm of prostate; C25.9 Malignant neoplasm of pancreas, unspecified; N40.1 Benign prostatic hyperplasia with lower urinary tract symptoms; N13.8 Other obstructive and reflux uropathy
CPT/HCPCS: 80048; 80061; 82378; 83036; 84153; 84450; 86301

== ENCOUNTER → 2024-09-03 06:55 | Outpatient (CLI) | payer MEDICARE, OTHER, SELFPAY ==
[2024-09-03 08:29] LABS: Prostate Specific Antigen 7.20 ng/mL (0.10-4.00)
[2024-09-03 08:49] LABS: Vitamin B12 Reflex MMA if <400 770 pg/mL (239-931)
[2024-09-04 07:09] LABS: Cancer (Carbohydrate) Ag 19-9 33 U/mL (0-35)
== END ==
PROVIDERS: PCP Internal Medicine; Referring Provider Internal Medicine; Visit Provider Internal Medicine
DX: R97.20 Elevated prostate specific antigen [PSA] (principal); R94.6 Abnormal results of thyroid function studies; D49.0 Neoplasm of unspecified behavior of digestive system; E53.8 Deficiency of other specified B group vitamins; R77.9 Abnormality of plasma protein, unspecified
CPT/HCPCS: 36415; 82607; 84153; 84155; 84165; 86301

== ENCOUNTER → 2024-09-12 08:20 | Outpatient (CLI) | payer MEDICARE, OTHER, SELFPAY ==
[2024-09-12 08:58] LABS: Appearance Urine UA CLEAR; Bilirubin Urine UA NEGATIVE (NEGATIVE); Color Urine UA YELLOW; Glucose Urine UA NEGATIVE (Negative); Ketones Urine UA NEGATIVE (NEGATIVE); Leukocyte Esterase Urine UA NEGATIVE (NEGATIVE); Nitrite Urine UA NEGATIVE (Negative); Occult Blood Urine UA NEGATIVE (Negative); Protein Urine UA NEGATIVE (Negative); Specific Gravity Urine UA 1.025 (1.000-1.035); Urobilinogen Urine UA 0.2 E.U./dL (0.2); pH Urine UA 6.0 (4.5-8.0)
[2024-09-12 09:03] LABS: Culture Indicated Urine Cult Not Indicated
== END ==
PROVIDERS: PCP Internal Medicine; Referring Provider Internal Medicine; Visit Provider Internal Medicine
DX: R97.20 Elevated prostate specific antigen [PSA] (principal); N40.1 Benign prostatic hyperplasia with lower urinary tract symptoms; N13.8 Other obstructive and reflux uropathy
CPT/HCPCS: 81001

== ENCOUNTER → 2024-09-25 08:39 | Outpatient (CLI) | payer MEDICARE, OTHER, SELFPAY ==
--- NOTE | 2024-09-25 08:41 | DI.MRI.S_ITS ---
PROCEDURE: MR PELVIC PROSTATE PROTOCOL INDICATIONS: elevated PSA TECHNIQUE: Coronal HASTE, axial T1 FSE with fat saturation, 3-plane nonbreath-hold T2 FSE. After the administration of contrast, dynamic axial, delayed axial and coronal VIBE or 2-D FLASH with fat saturation through the pelvis. Diffusion weighted imaging and ADC was performed. COMPARISON: None. FINDINGS: Image quality: Diffusion weighted and dynamic contrast enhanced images are diagnostic. Prostate: Gland size is 6.2 x 5.4 x 5.6 cm; ellipsoid gland volume is 27 mL. Lesion 1: Location: Right posterior transition zone, apex, on axial series 4, image 20 and coronal series 5, image 13. Size: 1.2 x 0.9 cm. T2W signal: Hypointense. DWI signal: Markedly hyperintense. ADC signal: Markedly hypointense. Enhancement: Yes. Extracapsular extension: No. No neurovascular involvement. PI-RADS score: 4 Lesion 2: Location: Left transition zone, far apex, on axial series 4, image 23 and sagittal series 6, image 15. Size: 0.4 x 0.5 cm. T2W signal: Hypointense. DWI signal: Markedly hyperintense. ADC signal: Markedly hypointense. Enhancement: Yes. Extracapsular extension: No. No neurovascular involvement. PI-RADS score: 4 Genitourinary system: Bladder is trabeculated. Distal ureters are non distended. Bowel and peritoneum: No pathologic free pelvic fluid. Inferior colon and small bowel loops are normal in caliber. Nodes and vessels: No pelvic or inguinal adenopathy by size criteria. Iliac vessels are normal in caliber. Soft tissues: Small inguinal hernias containing fat. Bones: Marrow demonstrates normal overall signal, without lesions to suggest metastases. IMPRESSION: PI-RADS 4 lesions in the prostate apex, as listed above. No evidence of extraprostatic extension. No pelvic lymphadenopathy by size criteria. No aggressive osseous abnormality. Dictated by: Norbert Maher M.D. on 09/25/2024 at 11:10 Approved by: Norbert Maher M.D. on 09/25/2024 at 11:17
== END ==
PROVIDERS: PCP Internal Medicine; Referring Provider Internal Medicine; Visit Provider Internal Medicine
DX: R97.20 Elevated prostate specific antigen [PSA] (principal); N40.1 Benign prostatic hyperplasia with lower urinary tract symptoms; N13.8 Other obstructive and reflux uropathy; N32.89 Other specified disorders of bladder; N42.89 Other specified disorders of prostate
CPT/HCPCS: 72197; A9579

== ENCOUNTER → 2024-10-08 16:31 | Outpatient (CLI) | payer MEDICARE, OTHER, SELFPAY ==
[2024-10-08 19:04] LABS: Prostate Specific Antigen 7.10 ng/mL (0.10-4.00)
== END ==
PROVIDERS: PCP Internal Medicine; Referring Provider Urology; Visit Provider Urology
DX: R97.20 Elevated prostate specific antigen [PSA] (principal)
CPT/HCPCS: 36415; 84153

== ENCOUNTER 2024-12-11 10:20 | Emergency (ER) | payer MEDICARE, OTHER, SELFPAY ==
[2024-12-11 10:26] VITALS: BP 112/79; PULSE 90; RESP 14; TEMP 37.1; O2SAT 97; BMI 28.0
--- NOTE | 2024-12-11 10:45 | DI.RAD.S_ITS ---
PROCEDURE: XR CHEST 2V INDICATIONS: flu TECHNIQUE: 2 views of the chest were acquired. COMPARISON: [facility], CR, XR CHEST 1V, 07/03/2021, 9:13. [facility], CR, XR CHEST 1V, 12/26/2020, 9:36. FINDINGS AND IMPRESSION: No airspace consolidation or pleural effusion. Low lung volumes. Unchanged cardiomediastinal contours. Normal heart size. Sternotomy wires. Aortic calcifications. Degenerative changes of the bones. Dictated by: Raymond hKan M.D. on 12/11/2024 at 11:15 Approved by: Raymond Khan M.D. on 12/11/2024 at 11:16
--- NOTE | 2024-12-11 11:15 | ED_ITS ---
<Statement entered by Jim Norwood, DO - 12/11/24 18:55> Co-sign statement: I was available for consultation during this patient's emergency department visit. This chart is being signed by myself for administrative purposes only. I do not have direct contact with this patient during this visit. They were seen independently by the APC. HPI - URI/Sore Throat General Chief Complaint: Upper Respiratory Symptoms Stated Complaint: Flu type A , headache ,sore throat Time Seen by Provider: 12/11/24 10:24 Source: patient Mode of arrival: Ambulatory History of Present Illness HPI Narrative: Mr. Fisher is a very pleasant 84-year-old male with a past medical history of CAD w/ CABG, HTN, HLD, AA, prostate neoplasm who presents to the emergency department for cough, fever, diarrhea, sore throat, positive home influenza a test x 5 days. The patient's tested positive for influenza A in the emergency department on Sunday, the patient then tested himself yesterday with a home test and was positive for influenza a and negative for influenza B and COVID. Since Sunday, patient has been experiencing a dry cough, raspy voice/throat, occasional sinus congestion, brief episode diarrhea. Patient had a difficult time sleeping last night due to congestion however this morning his gave him Tylenol and Sudafed and he was then able to sleep comfortably. He is actually starting to feel a bit better. He would like to be Re swabbed and confirmed if he has the flu. Reports having subjective fevers earlier in the week, he is afebrile today. Denies any chest pain, shortness of breath, abdominal pain, vomiting, dysuria. Related Data Home Medications ?Medication ?Instructions ?Recorded ?Confirmed amlodipine 5 mg tablet 5 mg PO DAILY 04/06/2209/23 aspirin 81 mg capsule 81 mg PO DAILY 04/06/2208/27 cholecalciferol (vitamin D3) 25 25 mcg PO DAILY 09/23/24 mcg (1,000 unit) capsule cyanocobalamin (vitamin B-12) 1,000 mcg PO DAILY 04/0609/23/24 1,000 mcg capsule ezetimibe 10 mg tablet 10 mg PO DAILY 04/06/2208/27 rosuvastatin 20 mg tablet 20 mg PO DAILY 04/06/2208/27 Previous Rx's ?Medication ?Instructions ?Recorded oseltamivir 75 mg capsule 75 mg PO BID 5 days #10 caps 12/11/24 Allergies Allergy/AdvReac Type Severity Reaction Status Date / Time No Known Drug Allergies Allergy Verified 12/11/24 10:26 Review of Systems Review of Systems ROS Unobtainable: All systems reviewed & are unremarkable except as noted in HPI and below Patient History Medical History Prostate neoplasm Polyneuropathy, unspecified Impaired fasting glucose Benign essential tremor Elevated PSA AAA (abdominal aortic aneurysm) without rupture IPMN (intraductal papillary mucinous neoplasm) Overweight History of colon cancer BPH w urinary obs/LUTS Mixed hyperlipidemia Essential hypertension Chicken pox (~1947) Colon polyps Coronary artery disease (~2014) Surgical History Anesthesia History of coronary artery bypass graft (~12/2014) History of hernia repair (~12/2005) History of hernia repair (~12/2003) History of cholecystectomy (~09/2003) Colon tumor (~03/2003) Family History Father History of heart disease Mother Cancer Grandfather Flu Social History details: ([place]), two children, retired financial/pawn shop keeper Smoking Status: Unknown if ever smoked Smoking Status: Unknown if ever smoked alcohol intake frequency: a few times a week Exam Narrative Exam Narrative: GENERAL: 84 year old patient appears stated age. Well-developed patient, in no acute distress. HEAD: Atraumatic. Normocephalic. EYES: PERRL. Extraocular motions intact. No scleral icterus. No injection or drainage. ENT: Clear ear canals and pearly gutierrez TMs bilaterally. Nose without bleeding, purulent drainage. Throat without erythema, tonsillar hypertrophy or exudate. Uvula midline. Airway patent. NECK: Trachea midline. Cervical ROM intact. CARDIOVASCULAR: Regular rate and rhythm. RESPIRATORY: ?Nonlabored respirations. ?Speaking in clear, full sentences. ?Clear to auscultation. Breath sounds equal bilaterally. No wheezes, rales, or rhonchi. ? EXTREMITIES: No LE edema or tenderness. NEURO: AOx3. ?Clear speech. ?Moves all 4 extremities appropriately. SKIN: No rash or erythema of visible areas Initial Vital Signs Initial Vital Signs: Vital Signs Temperature 98.7 F 12/11/24 10:26 Pulse Rate 90 12/11/24 10:26 Respiratory Rate 14 12/11/24 10:26 Blood Pressure 112/79 12/11/24 10:26 Pulse Oximetry 97 12/11/24 10:26 Oxygen Delivery Method Room Air 12/11/24 10:26 Course Orders Ordered: ED Orders 12/11/24 10:45 CXR [XR chest 2V] Stat 12/11/24 11:30 Covid-19 + FLU A/B + RSV - PCR Stat Discontinued Medications Acetaminophen (Acetaminophen 325 Mg Tablet) 975 mg PO NOW ONE Stop: 12/11/24 11:46 Last Admin: 12/11/24 11:53 Dose: 975 mg Documented By: BECKY Ibuprofen (Ibuprofen 400 Mg Tablet) 400 mg PO NOW ONE Stop: 12/11/24 11:46 Last Admin: 12/11/24 11:52 Dose: 400 mg Documented By: BECKY Vital Signs Vital signs: Vital Signs - 8 hr 12/11/24 10:26 12/11/24 11:52 12/11/24 12:43 Temperature 98.7 F 101 F H 100.1 F H Pulse Rate 90 75 Respiratory Rate 14 18 Blood Pressure 112/79 116/68 Pulse Oximetry 97 96 Oxygen Delivery Method Room Air Room Air MDM - URI/Sore Throat Medical Records Attestation: I reviewed the patient's medical records. Lab Data Labs: Lab Results 12/11/24 Range/Units 11:30 SARS-CoV-2 (PCR) Negative (Negative) Influenza A (RT-PCR) Flu a positive H (NEGATIVE) Influenza B (RT-PCR) Flu b negative (NEGATIVE) RSV (PCR) Negative (Negative) Imaging Data Chest x-ray: Radiologist's Impression: PROCEDURE: XR CHEST 2V INDICATIONS: flu TECHNIQUE: 2 views of the chest were acquired. COMPARISON: [facility], CR, XR CHEST 1V, 07/03/2021, 9:13. [facility], CR, XR CHEST 1V, 12/26/2020, 9:36. FINDINGS AND IMPRESSION: No airspace consolidation or pleural effusion. Low lung volumes. Unchanged cardiomediastinal contours. Normal heart size. Sternotomy wires. Aortic calcifications. Degenerative changes of the bones. Dictated by: Raymond Khan M.D. on 12/11/2024 at 11:15 Approved by: Raymond Khan M.D. on 12/11/2024 at 11:16 [facility] Narrative Medical decision making narrative: 84-year-old male with a past medical history of CAD w/ CABG, HTN, HLD, AA, pr ostate neoplasm who presents to the emergency department for cough, fever, diarrhea, sore throat, positive home influenza a test x 5 days. Differential diagnosis includes but isn't limited to viral syndrome, influenza, bronchitis, pneumonia, etc. On exam the patient is in no acute distress, nontoxic-appearing, all vital signs within normal limits. His lungs are clear to auscultation bilaterally. He has been experiencing flu-like symptoms for the last 5 days, they are improving, he did have a home positive influenza a test and his also has influenza A. He would like confirmation swab, he also was concerned about possible pneumonia. He has not experiencing any chest pain, shortness of breath, SIRS screen negative. Chest x-ray ordered in triage, he declines need for Tylenol or any medication at this time. Chest x-ray reveals no airspace consolidation or pleural effusion. On repeat vital signs, patient did develop a fever during his ED stay so he was treated with ibuprofen and Tylenol with improvement. Discussed Tamiflu with the patient and his , and after shared decision-making, I did prescribe the patient oseltamivir 75 mg b.i.d. x5 days given his age, medical history. Encouraged him to discuss this medication with his pharmacist. Discussed supportive care, rest, hydration, Tylenol for fever PCP follow up and ER return precautions. Patient is verbalized understanding of all information and are happy with the plan. He is ambulatory and stable for discharge home. Discharge Plan Departure Patient Disposition: Home Clinical Impression: Influenza A Instructions: DI for Influenza -- Adult Activity Restrictions/Additional Instructions: Dear Mr. Fisher, Thank you for coming to the emergency department. Today you were evaluated for upper respiratory infection symptoms, and you did test positive for influenza A. Your chest x-ray was normal and reassuring with no signs of pneumonia at this time. As we discussed, given your medical history, I would like to start you on Tamiflu which is an antiviral medication to help prevent worsening illness from influenza. Please continue to increase hydration, drink Pedialyte, use Tylenol as needed for fever, and increase rest. You can take your next dose of Tylenol around 6:00 p.m. this evening. Please return to the emergency department if you develop trouble breathing, chest pain, fevers lasting longer than 5 days, or any new or worsening symptoms. Please follow up with your primary care doctor within the next 2-3 days for ER follow-up. (If you do not have a PCP you can call [phone]. ?to schedule an appointment with an [facility] Primary Care Provider) IF YOU DEVELOP ANY NEW OR WORSENING SYMPTOMS, RETURN TO THE ER! Please read the attached instructions, they highlight more specific treatments and interventions for you at home. Thank you for letting me participate in your care, Heike Rg PA-C Prescriptions: New oseltamivir 75 mg capsule 75 mg PO BID 5 Days Qty: 10 0RF No Action rosuvastatin 20 mg tablet 20 mg PO DAILY ezetimibe 10 mg tablet 10 mg PO DAILY amlodipine 5 mg tablet 5 mg PO DAILY aspirin 81 mg capsule 81 mg PO DAILY cholecalciferol (vitamin D3) 25 mcg (1,000 unit) capsule 25 mcg PO DAILY cyanocobalamin (vitamin B-12) 1,000 mcg capsule 1,000 mcg PO DAILY Referrals: Wilbur Lynch MD [Primary Care Provider, Internal Medicine] Stand Alone Forms: Patient Portal/API
[2024-12-11 11:52] VITALS: TEMP 38.3
[2024-12-11] MEDS: IBUPROFEN 400 MG TABLET PO (11:52)
[2024-12-11] MEDS: ACETAMINOPHEN 325 MG TABLET 975 MG PO (11:53)
[2024-12-11 12:15] LABS: Influenza A - CEPHEID Flu A POSITIVE (NEGATIVE); Influenza B - CEPHEID Flu B NEGATIVE (NEGATIVE)
[2024-12-11 12:16] LABS: COVID-19 CEPHEID 4-PLEX PCR Negative (Negative)
[2024-12-11 12:43] VITALS: BP 116/68; PULSE 75; RESP 18; TEMP 37.8; O2SAT 96
== END 2024-12-11 12:55 | disposition home or self-care (01) ==
PROVIDERS: Emergency Provider Physician Assistant; PCP Internal Medicine
DX: J10.1 Influenza due to other identified influenza virus with other respiratory manifestations (principal)
CPT/HCPCS: 71046; 87637; 99283

== ENCOUNTER → 2025-02-07 09:13 | Outpatient (CLI) | payer MEDICARE, OTHER, SELFPAY ==
[2025-02-07 12:16] LABS: Alanine Aminotransferase 20 IU/L (<50); Albumin 3.8 g/dL (3.5-5.0); Albumin Globulin Ratio 1.6 (1.0-2.8); Alkaline Phosphatase 41 U/L (38-126); Blood Urea Nitrogen 19 mg/dL (9-20); Calcium 8.9 mg/dL (8.4-10.2); Carbon Dioxide 25 mmol/L (22-32); Chloride 107 mmol/L (98-107); Cholesterol 113 mg/dL (140-199); Estimated Glomerular Filt Rate > 60 mL/min (>60); Globulin 2.4 g/dL (1.7-4.1); Glucose 121 mg/dL (70-99); HDL Cholesterol 54 mg/dL (40-60); HEMOLYSIS < 15 (0-50); Potassium 4.3 mmol/L (3.4-5.1); Sodium 142 mmol/L (137-145); Total Protein 6.2 g/dL (6.3-8.2); Triglycerides 104 mg/dL (35-150)
== END ==
PROVIDERS: PCP Internal Medicine; Referring Provider Internal Medicine Cardiovascular Disease; Visit Provider Internal Medicine Cardiovascular Disease
DX: E78.5 Hyperlipidemia, unspecified (principal); I10 Essential (primary) hypertension; I24.9 Acute ischemic heart disease, unspecified
CPT/HCPCS: 36415; 80053; 80061